=== PATIENT | female | born 1985 | race African-American/Black ===

== ENCOUNTER 2018-06-17 10:05 | Emergency (ER) | payer MEDICAID ==
[~2018-06-17] VITALS: Ht 175.3 cm; Wt 52.0 kg
[2018-06-17 10:36] VITALS: BP 144/95
== END 2018-06-17 13:01 | disposition home or self-care (01) ==
LOC: ER 12:35
DX: L73.1 Pseudofolliculitis barbae (principal); H57.11 Ocular pain, right eye; R22.0 Localized swelling, mass and lump, head; Z98.890 Other specified postprocedural states
CPT/HCPCS: 99281; 99282

== ENCOUNTER 2018-07-09 16:44 | Emergency (ER) | payer MEDICAID ==
[~2018-07-09] VITALS: Ht 175.3 cm; Wt 54.0 kg
[2018-07-09 17:00] VITALS: BP 152/99
== END 2018-07-09 19:25 | disposition left against medical advice (07) ==
LOC: ER 17:24
DX: Z53.21 Procedure and treatment not carried out due to patient leaving prior to being seen by health care provider (principal)

== ENCOUNTER 2019-02-13 18:36 | Emergency (ER) | payer MEDICAID ==
[~2019-02-13] VITALS: Ht 175.3 cm; Wt 53.0 kg
[2019-02-13 18:49] VITALS: BP 126/80
== END 2019-02-13 20:30 | disposition left against medical advice (07) ==
LOC: ER 18:36
DX: Z53.21 Procedure and treatment not carried out due to patient leaving prior to being seen by health care provider (principal)
CPT/HCPCS: 93005

== ENCOUNTER 2019-06-23 08:49 | Emergency (ER) | payer MEDICAID ==
[~2019-06-23] VITALS: Ht 175.3 cm; Wt 52.0 kg
[2019-06-23 08:56] VITALS: BP 130/95
[2019-06-23] MEDS: CYCLOBENZAPRINE 10MG TABLET PO ONE (09:49)
[2019-06-23] MEDS: KETOROLAC 60MG/2ML VIAL IM ONE (09:49)
== END 2019-06-23 11:47 | disposition home or self-care (01) ==
LOC: ER 08:49
DX: S10.93XA Contusion of unspecified part of neck, initial encounter (principal); S80.11XA Contusion of right lower leg, initial encounter; F12.10 Cannabis abuse, uncomplicated; Z88.5 Allergy status to narcotic agent; Z98.890 Other specified postprocedural states; Y08.89XA Assault by other specified means, initial encounter; Y93.89 Activity, other specified; Y92.89 Other specified places as the place of occurrence of the external cause; Y99.8 Other external cause status
CPT/HCPCS: 70490; 81025; 96372; 99284; J1885